=== PATIENT | female | born 1940 | race Caucasian/White ===

== ENCOUNTER 2018-07-20 07:48 | Day surgery (SDC) | payer OTHER ==
[~2018-07-20 07:48] MED LIST: SOD CHLORIDE 0.9% 1,000 ML IV
[2018-07-20] MEDS: MOXIFLOXACIN 0.5% 3 ML OPH OPER (08:30)
[2018-07-20] MEDS: CYCLOPENTOLATE/PHENYLEPH 2 ML OPH OPER (08:30)
[2018-07-20] MEDS: DICLOFENAC 0.1% 2.5 ML OPH OPER (08:30)
[2018-07-20] MEDS: TROPICAMIDE 1% 15 ML OPH OPER (08:30)
[2018-07-20] MEDS: CARBACHOL 0.01% 1.5 ML OPH INJ (09:32)
[2018-07-20] MEDS: CEFAZOLIN 1 GM INJ (09:32)
[2018-07-20] MEDS: DEXAMETHASONE 4 MG/ML 1 ML INJ (09:32)
[2018-07-20] MEDS ORDERED: PROPOFOL 20 ML (09:37)
[2018-07-20] MEDS ORDERED: ONDANSETRON 4 MG INJ (09:37)
[2018-07-20] MEDS ORDERED: METOCLOPRAMIDE 10 MG INJ (09:37)
[2018-07-20] MEDS ORDERED: LABETALOL HCL 20MG INJ IV (10:00)
[2018-07-20] MEDS ORDERED: morphine (1 MG/ML) 10ML SYRINGE IV (10:00)
[2018-07-20] MEDS ORDERED: EPHEDrine SULFATE 50 MG/5 ML SYG IV (10:00)
[2018-07-20] MEDS ORDERED: METOCLOPRAMIDE 10 MG INJ IV (10:00)
[2018-07-20] MEDS ORDERED: OXYCODONE/ACETAMINOPHEN (5/325) TAB PO (10:00)
[2018-07-20] MEDS ORDERED: hydrALAzine 20 MG INJ IV (10:00)
[2018-07-20] MEDS ORDERED: NA HYALURONATE/CHONDROITIN 0.5 ML SYG (10:13)
[2018-07-20] MEDS ORDERED: LIDOCAINE 4% (MPF) 5 ML INJ (10:13)
[2018-07-20] MEDS: FENTAnyl 50 MCG/ML VIAL IV (10:39)
[2018-07-20] MEDS: ONDANSETRON 4 MG INJ IV (10:39)
== END 2018-07-20 11:12 | disposition home or self-care (01) ==
LOC: SDS 07:48
DX: H25.11 Age-related nuclear cataract, right eye (principal); I10 Essential (primary) hypertension; E78.5 Hyperlipidemia, unspecified; E03.9 Hypothyroidism, unspecified
CPT/HCPCS: 66984